=== PATIENT | male | born 1950 | race Caucasian/White ===

== ENCOUNTER 2022-02-17 01:17 | Day surgery (SDC) | payer MEDICARE, SELFPAY ==
[2022-02-02 10:46] VITALS: BMI 25.0
--- NOTE | 2022-02-16 10:39 | PM.HPGS ---
History of Present Illness History of Present Illness Consent: Risks, benefits, and alternatives have been discussed and questions answered. Patient agrees to proceed with procedure. Chief complaint: hx of colon polyps Narrative: Jacob Garcia is a 71 year old male referred for colon cancer screening. He has a history of polyps. His last colonoscopy was about 6 years ago and was apparently negative for polyps at that time. Review of Systems Review of Systems: All systems reviewed & are unremarkable except as noted in HPI and below PMFSH Past Medical History Medical History HTN (hypertension) Hyperlipidemia Spinal stenosis Social History Social History Smoking status: Never smoker Alcohol intake: current Substance use: never Substance use type: does not use Living arrangements: with family Spiritual care concerns: No Meds Home Medications and Allergies Home Medications Medication Instructions Recorded Confirmed Type atorvastatin 20 mg tablet 1 tablet PO DAILY 02/02/22 02/17/22 History cholecalciferol (vitamin D3) 1,250 1 cap PO WEEKLY 02/02/22 02/17/22 History mcg (50,000 unit) capsule lisinopril 10 mg tablet 1 tablet PO DAILY 02/02/22 02/17/22 History Allergies Allergy/AdvReac Type Severity Reaction Status Date / Time No Known Allergies Allergy Verified 02/17/22 09:50 Exam Resp: Auscultation: clear to auscultation bilaterally Cardio: Rate: regular rate Rhythm: regular rhythm GI: GI Palp: Yes Soft to palpation and No Tenderness to palpation present (GI) Assessment and Plan Assessment and plan (1) Colon cancer screening: Code(s): Z12.11 - Encounter for screening for malignant neoplasm of colon Status: Acute Assessment and Plan: Colonoscopy with possible biopsy or polypectomy or cautery or injection of substances.
--- NOTE | 2022-02-16 12:55 | WPDANESEPPF ---
Anes - Initial Pre Proc Eval Procedure: Operation Date: 02/17/22 11:00 Proposed Procedures p Screening Colonoscopy - Neri Kim MD Date/Time: 02/16/22 12:55 Surgeon: Neri Kim MD Pre Op Diagnosis: hx of colon polyps Patient Data Age: 71 Gender: M Height: 1.64 m Weight: 67 kg Allergies Allergy/AdvReac Type Severity Reaction Status Date / Time No Known Allergies Allergy Verified 02/17/22 09:50 Home Medications Medication Instructions Recorded Confirmed Type atorvastatin 20 mg tablet 1 tablet PO DAILY 02/02/22 02/17/22 History cholecalciferol (vitamin D3) 1,250 1 cap PO WEEKLY 02/02/22 02/17/22 History mcg (50,000 unit) capsule lisinopril 10 mg tablet 1 tablet PO DAILY 02/02/22 02/17/22 History Patient hx anesthesia problems: none Family hx anesthesia problems: none Results Review: All pre-operative results and documents have been reviewed as part of the pre-operative evaluation. ON LICENSE OF [facility] Past Medical History Medical History (Updated 02/16/22 @ 12:56 by Nabor Wild MD) HTN (hypertension) Hyperlipidemia Spinal stenosis Social History Social History Smoking status: Never smoker Alcohol intake: current Substance use: never Substance use type: does not use Living arrangements: with family Spiritual care concerns: No Anes - Eval Final PreProcedure Day of Procedure 02/16/22 12:55 Patient weight: normal Heart: regular rate and rhythm Lungs: clear to auscultation and normal air movement Airway: Mallampati scale class II Neurological: alert and oriented Last oral intake: >/= 8 hours ASA classification: II Emergent: no Anesthetic plan: proceed Anesthesia type and monitoring: general GIVS Results Review: All pre-operative results and documents have been reviewed as part of the pre-operative evaluation. Informed Consent: The patient's anesthetic plan and its attendant risks and benefits were discussed with the patient/family/POA. Questions were solicited and answers provided to the satisfaction of the patient/family/POA.
[2022-02-17 09:52] VITALS: BP 155/84; PULSE 78; RESP 18; TEMP 36.3; O2SAT 100; BMI 26.0
[2022-02-17] MEDS: LACTATED RINGERS 1,000 ML 150 ML IV CONT (10:02)
[2022-02-17] MEDS: SIMETHICONE ORAL SUSPENSION 20 MG/0.3 ML 30 ML BOTTLE 0.6 ML IRRIGATION (11:11)
[2022-02-17 11:16] VITALS: BP 133/75; PULSE 78; RESP 18; O2SAT 100
[2022-02-17 11:26] VITALS: BP 116/67; PULSE 78; RESP 18; O2SAT 100
[2022-02-17 11:36] VITALS: BP 130/78; PULSE 72; RESP 18; O2SAT 97
== END 2022-02-17 11:48 | disposition home or self-care (01) ==
PROVIDERS: PCP Internal Medicine; Visit Provider Internal Medicine Gastroenterology
PROC: 0DJD8ZZ Inspection of Lower Intestinal Tract, Via Natural or Artificial Opening Endoscopic (ICD-10-PCS; CPT 45378; principal; 2022-02-17 11:00)
DX: Z12.11 Encounter for screening for malignant neoplasm of colon (principal); K64.8 Other hemorrhoids; K57.30 Diverticulosis of large intestine without perforation or abscess without bleeding; Z86.010 Personal history of colon polyps; I10 Essential (primary) hypertension; E78.5 Hyperlipidemia, unspecified
CPT/HCPCS: G0105; J2704; J7120

== ENCOUNTER 2024-09-20 09:11 | Outpatient (CLI) | payer MEDICARE, SELFPAY ==
--- NOTE | ~2024-09-20 | CT_ITS ---
CLINICAL INDICATION: Renal mass COMPARISON: None. TECHNIQUE: Multiple contiguous axial images of the abdomen was performed both prior to and following the administration of 100 mL Omnipaque-350 intravenous contrast. Portal venous phase was also perform ed. The dose-length product (DLP) was 748.93 mGy-cm. Automated exposure control and iterative reconstruction technique were employed. FINDINGS/OBSERVATIONS: Visualized lower thorax: The bilateral lung bases are clear. The heart is of normal size, without pericardial effusion. Liver: Multiple well-circumscribed fluid attenuation foci are identified within the liver, consistent with c ysts for which no further follow-up is needed. Gallbladder and biliary system: The gallbladder is only minimally distended, and otherwise unremarkable. Pancreas: The pancreas enhances homogeneously without ductal dilatation. Spleen: The spleen enhances homogeneously and is not enlarged measuring 8 cm in longitudinal dimension. Kidneys: Exophytic from the anterior lower pole of the right kidney is an 11 x 12 x 7 mm focus of abnormal con trast enhancement measuring 32 Hounsfield units before contrast, 178 Hounsfield units during the alejandrina rial phase, and 196 Hounsfield units during the venous phase. This pattern of contrast enhancement re presents a malignancy until proven otherwise. Trace surrounding inflammatory change is also noted within the retroperitoneum. The remainder of the right and the entirety of the left kidney are unremarkable Adrenal glands: Unremarkable. Gastrointestinal tract: Colonic diverticulosis without surrounding inflammatory change. Vasculature: Calcified atherosclerotic disease within the abdominal aorta. A single artery supplies the right kidney with an early branching pattern. IMPRESSION: Findings exophytic from the lower pole of the right kidney with an abnormal enhancement pattern, most consistent with a malignancy. Reviewed, dictated and finalized at location A. T [employer] IMPRESSION: Findings exophytic from the lower pole of the right kidney with an abnormal enh ancement pattern, most consistent with a malignancy.
[2024-09-20 09:32] LABS: Estimated Glomerular Filt Rate > 60
== END 2024-09-20 09:12 | disposition home or self-care (01) ==
PROVIDERS: PCP Internal Medicine; Visit Provider Internal Medicine
DX: R16.0 Hepatomegaly, not elsewhere classified (principal)
CPT/HCPCS: 74170; Q9967